=== PATIENT | female | born 1940 | race Caucasian/White ===

== ENCOUNTER → 2016-08-06 | Outpatient (CLI) | payer OTHER ==
[~2016-08-06] MED LIST: ALOE25CA4 PO; ATOR-54 PO; GABA-113 PO; HYDR25TA4 PO; IBUP-1105 PO
[2016-08-06 18:29] LABS: BLOOD UREA NITROGEN 19 mg/dl (7-18); BUN/CREATININE RATIO 23.1 (10-20); CALCIUM 9.3 mg/dl (8.5-10.1); CARBON DIOXIDE 27 mmol/L (21-32); CHLORIDE 98 mmol/L (98-107); CREATININE 0.83 mg/dl (0.60-1.20); GLUCOSE 82 mg/dl (70-99); POTASSIUM 3.7 mmol/L (3.5-5.1); SODIUM 134 mmol/L (136-145)
[2016-08-06 18:32] LABS: CHOLESTEROL 151 mg/dl (0-200); HDL CHOLESTEROL 77 mg/dl; LDL CHOLESTEROL CALCULATED 58 mg/dl; TRIGLYCERIDES 81 mg/dl (0-150); VERY LOW DENSITY LIPOPROT CALC 16 mg/dl
== END | disposition home or self-care (01) ==
LOC: C.LABPVFM 13:51
PROVIDERS: ATTEND Nurse Practitioner
DX: E55.9 Vitamin D deficiency, unspecified (principal); E78.5 Hyperlipidemia, unspecified; I10 Essential (primary) hypertension

== ENCOUNTER → 2017-02-10 | Outpatient (CLI) | payer OTHER ==
[2017-02-10 17:34] LABS: BLOOD UREA NITROGEN 15 mg/dl (7-18); BUN/CREATININE RATIO 18.2 (10-20); CALCIUM 9.7 mg/dl (8.5-10.1); CARBON DIOXIDE 30 mmol/L (21-32); CHLORIDE 100 mmol/L (98-107); CREATININE 0.85 mg/dl (0.60-1.20); GLUCOSE 89 mg/dl (70-99); POTASSIUM 3.8 mmol/L (3.5-5.1); SODIUM 135 mmol/L (136-145)
== END | disposition home or self-care (01) ==
LOC: C.LABPVFM 13:46
PROVIDERS: ATTEND Nurse Practitioner
DX: I10 Essential (primary) hypertension (principal)

== ENCOUNTER → 2017-07-15 | Outpatient (CLI) | payer OTHER ==
[~2017-07-15] MED LIST changes: +CALC500T85 PO; +CHOL1TAB42 PO; -GABA-113 PO; +NRN600 PO; +OXYC-57 PO
[2017-07-15 18:37] LABS: BLOOD UREA NITROGEN 18 mg/dl (7-18); CALCIUM 9.5 mg/dl (8.5-10.1); CARBON DIOXIDE 28 mmol/L (21-32); CREATININE 0.94 mg/dl (0.60-1.20); GLUCOSE 89 mg/dl (70-99); POTASSIUM 3.2 mmol/L (3.5-5.1); SODIUM 131 mmol/L (136-145)
== END | disposition home or self-care (01) ==
LOC: C.LABPVFM 16:06
PROVIDERS: ATTEND Nurse Practitioner
DX: I10 Essential (primary) hypertension (principal)

== ENCOUNTER → 2017-07-19 | Day surgery (SDC) | payer OTHER ==
[2017-06-28 10:18] VITALS: Ht 162.6 cm; Wt 55.5 kg
[~2017-07-19] VITALS: Ht 162.6 cm; Wt 55.5 kg
[~2017-07-19] MED LIST changes: +500ML BSS 0.3ML EPI 1:1000PF IRRIG ONE; +ACETAMINOPHEN 325 MG TAB PO PRN; +AMVISC PLUS 0.8ML SYRINGE INT OCU ONE; +ATROPINE SULFATE 0.1 MG/ML 5ML SYR IV PRN; +BSS FLUSH ONE; +EpHEDrine SULFATE INJ 50 MG/ML AMP IV PRN; +EpINEphrine INJ 1MG/ML AMP 1 MG/ML AMP ONE; +LACTATED RINGER'S 1000ML 500 ML IV SCH; +LIDOCAINE 3.5% OPH GEL PER APPLICATION CHARGE ONE; +LIDOCAINE HCL 1% MPF 2 ML VIAL ONE; +MIDAZOLAM HCL 1 MG/ML 2ML VIAL ONE; +OCUCOAT 1 ML SOLN IO ONE; +PHENYLEPHRINE HCL 10% OP SOLN PER DROP CHARGE OPL SCH; +POVIDONE-IODINE OP SOLN 30 ML BTL ONE; +PROPARACAINE 0.5% OP SOLN PER DROP CHARGE OPL SCH; +TOBRAMYCIN/DEXAMETHASONE OPH OINT PER APPLN CHARGE ONE
[2017-07-19] MEDS: PHENYLEPHRINE HCL 2.5% OP SOLN PER DROP CHARGE OPL SCH ×2 (08:12→08:17)
[2017-07-19] MEDS: TROPICAMIDE 1% OP SOLN PER DROP CHARGE OPL SCH ×2 (08:13→08:18)
[2017-07-19] MEDS: CYCLOPENTOLATE HCL 1% OP SOLN PER DROP CHARGE OPL SCH ×2 (08:14→08:19)
[2017-07-19] MEDS: KETOROLAC 0.5% OP SOLN PER DROP CHARGE OPL SCH ×2 (08:15→08:20)
[2017-07-19] MEDS: GATIFLOXACIN OP SOLN PER DROP CHARGE OPL SCH ×2 (08:16→08:26)
--- NOTE | 2017-07-19 08:55 | History & Physical Bridge - [place] ---
H&P Re-Evaluation Bridge Note: I have examined the patient, reviewed the History & Physical and in the interval since the performance of the History & Physical I have noted the following changes of clinical significance: No changes noted
--- NOTE | 2017-07-19 09:26 | [facility] Operative Report ---
Operative Report Date of Service Jul 19, 2017. Operative Report 1. PREOPERATIVE DIAGNOSIS: Cataract of the left eye. 2. POSTOPERATIVE DIAGNOSIS: Same. 3. PROCEDURE: Phacoemulsification with intraocular lens implantation of the left eye. SURGEON: Dr. Srinivas Kidd. ANESTHESIA: Topical Lidocaine gel, 1% Non- Preserved intracameral Lidocaine, and monitored intravenous sedation. INDICATIONS FOR THE PROCEDURE: The patient is a 76 - year-old female with a history of cataract of the left eye causing significant visual impairment. The details of the proposed procedure were explained to the patient who asked appropriate questions and following discussion of all risks, benefits and alternatives agreed to have the procedure done. 4. OPERATION AND FINDINGS: DESCRIPTION OF PROCEDURE: After informed consent was obtained, the patient was brought to the Operating Room at the [facility]. The patient was placed in a supine position and then the left eye was prepped and draped in the usual sterile fashion for intraocular surgery. A drop of topical Lidocaine gel was placed in the operative eye. A wire lid speculum was then placed in the fornices. A corneal paracentesis was then created temporally. The Non-Preserved Lidocaine was then instilled into the anterior chamber. The anterior chamber was then pressurized with viscoelastic. A 2.0 mm clear corneal incision was then created temporally. A cystotome was inserted into the anterior chamber and used to create a tear in the anterior lens capsule. This capsular tear was then used to create a small flap and the flap was dragged in a counterclockwise direction in order to create a continuous curvilinear capsulorrhexis. Hydrodissection was accomplished with balanced salt solution. Phacoemulsification of the lens nucleus was then performed in a standard [id number] technique. The phaco time was 36 seconds with an average power of 14 %. The remaining cortical material was removed using irrigation aspiration. The capsular bag was then filled with viscoelastic. A [employer] Lomb MI60L +22.0 diopters lens was then loaded into the injector and injected into the capsular bag. The remaining viscoelastic was removed with the irrigation aspiration handpiece. The wound was hydrated and then checked and found to be watertight. The intraocular pressure was checked and found to be adequate. The wire lid speculum was removed and the patient's face was cleaned and dried. TobraDex ointment was placed in the inferior fornix. The patient was discharged to the Recovery Room having tolerated the procedure well. There were no complications. The patient will be seen tomorrow in the office for follow-up. I attest to the content of the Intraoperative Record and any orders documented therein. Any exceptions are noted below.
--- NOTE | 2017-07-19 09:27 | Discharge Instructions-SurgCtr ---
Discharge Instructions Date of Service Jul 19, 2017. Visit Reason for Visit: Cataract Left Eye Discharge Discharge Diagnosis / Problem: cataract Discharge Goals Goal(s): Improve function Activity Recommendations Activity Limitations: per Instructions/Follow-up section Anesthesia . Post Anesthesia Instructions: If you have had General Anesthesia or IV Sedation: * Do not drive today. * Resume driving when surgeon permits. * Do not make important decisions or sign legal documents today. * Call surgeon for: 1. Temperature elevations greater than 101 degrees F. 2. Uncontrollable pain. 3. Excessive bleeding. 4. Persistent nausea and vomiting. 5. Medication intolerance (nausea, vomiting or rash). * For nausea and vomiting use only clear liquids such as: tea, soda, bouillon until nausea subsides, then gradually increase diet as tolerated. * If you have any concerns or questions, call your surgeon's office. If physician is unavailable and it is an emergency, call 911 or go to the nearest emergency room. . Diet Recommendations Home Diet: resume previous diet Procedures Procedures Performed: Left Cataract Phacoemulsification With Intraocular Lens Implant Pending Studies Studies pending at discharge: no Medical Emergencies . Who to Call and When: Medical Emergencies: If at any time you feel your situation is an emergency, please call 911 immediately. . Non-Emergent Contact Non-Emergency issues call your: [employer] . . "Provider Documentation" section prepared by Srinivas Kidd. .
[2017-07-19 09:30] VITALS: TEMP 36.3
--- NOTE | 2017-07-19 09:45 | Anesthesia Progress Nt - [facility] ---
Anesthesia Post Op Note Date & Time Jul 19, 2017 at 09:45 Vital Signs Pain Intensity: 0 Vital Signs Past 12 Hours Date Time Temp Pulse Resp B/P (MAP) Pulse Ox O2 Delivery O2 Flow Rate FiO2 07/19/17 09:30 36.3 78 16 134/76 (95) 99 Room Air 07/19/17 08:09 36.3 69 16 171/85 (113) 98 Room Air Notes Mental Status: alert / awake / arousable, participated in evaluation Pt Amnestic to Procedure: Yes Nausea / Vomiting: adequately controlled Pain: adequately controlled Airway Patency, RR, SpO2: stable & adequate BP & HR: stable & adequate Hydration State: stable & adequate Anesthetic Complications: no major complications apparent
[2017-07-19 09:51] VITALS: BP 151/73; PULSE 63; O2SAT 100
== END | disposition home or self-care (01) ==
LOC: X.SURG 07:54
PROVIDERS: ATTEND Ophthalmology
DX: H26.9 Unspecified cataract (principal); I10 Essential (primary) hypertension; M54.5 Low back pain; E78.00 Pure hypercholesterolemia, unspecified; F41.9 Anxiety disorder, unspecified; E78.5 Hyperlipidemia, unspecified; E55.9 Vitamin D deficiency, unspecified; F32.9 Major depressive disorder, single episode, unspecified; E05.00 Thyrotoxicosis with diffuse goiter without thyrotoxic crisis or storm; E03.9 Hypothyroidism, unspecified; Z87.891 Personal history of nicotine dependence; Z92.29 Personal history of other drug therapy

== ENCOUNTER → 2017-07-27 | Outpatient (CLI) | payer OTHER ==
[~2017-07-27] MED LIST changes: -500ML BSS 0.3ML EPI 1:1000PF IRRIG ONE; -ACETAMINOPHEN 325 MG TAB PO PRN; -AMVISC PLUS 0.8ML SYRINGE INT OCU ONE; -ATROPINE SULFATE 0.1 MG/ML 5ML SYR IV PRN; -BSS FLUSH ONE; -EpHEDrine SULFATE INJ 50 MG/ML AMP IV PRN; -EpINEphrine INJ 1MG/ML AMP 1 MG/ML AMP ONE; -LACTATED RINGER'S 1000ML 500 ML IV SCH; -LIDOCAINE 3.5% OPH GEL PER APPLICATION CHARGE ONE; -LIDOCAINE HCL 1% MPF 2 ML VIAL ONE; -MIDAZOLAM HCL 1 MG/ML 2ML VIAL ONE; -OCUCOAT 1 ML SOLN IO ONE; -PHENYLEPHRINE HCL 10% OP SOLN PER DROP CHARGE OPL SCH; -POVIDONE-IODINE OP SOLN 30 ML BTL ONE; -PROPARACAINE 0.5% OP SOLN PER DROP CHARGE OPL SCH; -TOBRAMYCIN/DEXAMETHASONE OPH OINT PER APPLN CHARGE ONE
== END | disposition home or self-care (01) ==
LOC: C.LABPVFM 07:29
PROVIDERS: ATTEND Nurse Practitioner
DX: E87.6 Hypokalemia (principal)

== ENCOUNTER → 2017-08-09 | Day surgery (SDC) | payer OTHER ==
[2017-07-27 16:18] VITALS: Ht 162.6 cm; Wt 55.5 kg
[~2017-08-09] VITALS: Ht 162.6 cm; Wt 55.5 kg
[~2017-08-09] MED LIST changes: +500ML BSS 0.3ML EPI 1:1000PF IRRIG ONE; +ACETAMINOPHEN 325 MG TAB PO PRN; +AMVISC PLUS 0.8ML SYRINGE INT OCU ONE; +ATROPINE SULFATE 0.1 MG/ML 5ML SYR IV PRN; +BSS FLUSH ONE; +EpHEDrine SULFATE INJ 50 MG/ML AMP IV PRN; +EpINEphrine INJ 1MG/ML AMP 1 MG/ML AMP ONE; +LACTATED RINGER'S 1000ML 500 ML IV SCH; +LIDOCAINE 3.5% OPH GEL PER APPLICATION CHARGE ONE; +LIDOCAINE HCL 1% MPF 2 ML VIAL ONE; +MIDAZOLAM HCL 1 MG/ML 2ML VIAL ONE; +PHENYLEPHRINE HCL 10% OP SOLN PER DROP CHARGE OPR SCH; +POVIDONE-IODINE OP SOLN 30 ML BTL ONE; +PROPARACAINE 0.5% OP SOLN PER DROP CHARGE OPR SCH; +TOBRAMYCIN/DEXAMETHASONE OPH OINT PER APPLN CHARGE ONE
[2017-08-09] MEDS: PHENYLEPHRINE HCL 2.5% OP SOLN PER DROP CHARGE OPR SCH ×2 (10:01→10:07)
[2017-08-09] MEDS: TROPICAMIDE 1% OP SOLN PER DROP CHARGE OPR SCH ×2 (10:02→10:08)
[2017-08-09] MEDS: CYCLOPENTOLATE HCL 1% OP SOLN PER DROP CHARGE OPR SCH ×2 (10:03→10:09)
[2017-08-09] MEDS: KETOROLAC 0.5% OP SOLN PER DROP CHARGE OPR SCH ×2 (10:04→10:10)
[2017-08-09] MEDS: GATIFLOXACIN OP SOLN PER DROP CHARGE OPR SCH ×2 (10:05→10:15)
--- NOTE | 2017-08-09 11:06 | [facility] Operative Report ---
Operative Report Date of Service Aug 09, 2017. Operative Report 1. PREOPERATIVE DIAGNOSIS: Cataract of the right eye. 2. POSTOPERATIVE DIAGNOSIS: Same. 3. PROCEDURE: Phacoemulsification with intraocular lens implantation of the right eye. SURGEON: Dr. Srinivas Kidd. ANESTHESIA: Topical Lidocaine gel, 1% Non- Preserved intracameral Lidocaine, and monitored intravenous sedation. INDICATIONS FOR THE PROCEDURE: The patient is a 76 - year-old female with a history of cataract of the right eye causing significant visual impairment. The details of the proposed procedure were explained to the patient who asked appropriate questions and following discussion of all risks, benefits and alternatives agreed to have the procedure done. 4. OPERATION AND FINDINGS: DESCRIPTION OF PROCEDURE: After informed consent was obtained, the patient was brought to the Operating Room at the [facility]. The patient was placed in a supine position and then the right eye was prepped and draped in the usual sterile fashion for intraocular surgery. A drop of topical Lidocaine gel was placed in the operative eye. A wire lid speculum was then placed in the fornices. A corneal paracentesis was then created temporally. The Non-Preserved Lidocaine was then instilled into the anterior chamber. The anterior chamber was then pressurized with viscoelastic. A 2.0 mm clear corneal incision was then created temporally. A cystotome was inserted into the anterior chamber and used to create a tear in the anterior lens capsule. This capsular tear was then used to create a small flap and the flap was dragged in a counterclockwise direction in order to create a continuous curvilinear capsulorrhexis. Hydrodissection was accomplished with balanced salt solution. Phacoemulsification of the lens nucleus was then performed in a standard [id number] technique. The phaco time was 32 seconds with an average power of 15 %. The remaining cortical material was removed using irrigation aspiration. The capsular bag was then filled with viscoelastic. A [employer]ch [employer] Lomb MI60L +22.0 diopters lens was then loaded into the injector and injected into the capsular bag. The remaining viscoelastic was removed with the irrigation aspiration handpiece. The wound was hydrated and then checked and found to be watertight. The intraocular pressure was checked and found to be adequate. The wire lid speculum was removed and the patient's face was cleaned and dried. TobraDex ointment was placed in the inferior fornix. The patient was discharged to the Recovery Room having tolerated the procedure well. There were no complications. The patient will be seen tomorrow in the office for follow-up. I attest to the content of the Intraoperative Record and any orders documented therein. Any exceptions are noted below.
--- NOTE | 2017-08-09 11:07 | Discharge Instructions-SurgCtr ---
Discharge Instructions Date of Service Aug 09, 2017. Visit Reason for Visit: Cataract Right Eye Discharge Discharge Diagnosis / Problem: cataract Discharge Goals Goal(s): Improve function Activity Recommendations Activity Limitations: per Instructions/Follow-up section Anesthesia . Post Anesthesia Instructions: If you have had General Anesthesia or IV Sedation: * Do not drive today. * Resume driving when surgeon permits. * Do not make important decisions or sign legal documents today. * Call surgeon for: 1. Temperature elevations greater than 101 degrees F. 2. Uncontrollable pain. 3. Excessive bleeding. 4. Persistent nausea and vomiting. 5. Medication intolerance (nausea, vomiting or rash). * For nausea and vomiting use only clear liquids such as: tea, soda, bouillon until nausea subsides, then gradually increase diet as tolerated. * If you have any concerns or questions, call your surgeon's office. If physician is unavailable and it is an emergency, call 911 or go to the nearest emergency room. . Diet Recommendations Home Diet: resume previous diet Procedures Procedures Performed: Right Cataract Phacoemulsification With Intraocular Lens Implant Pending Studies Studies pending at discharge: no Medical Emergencies . Who to Call and When: Medical Emergencies: If at any time you feel your situation is an emergency, please call 911 immediately. . Non-Emergent Contact Non-Emergency issues call your: [employer] . . "Provider Documentation" section prepared by Srinivas Kidd. .
[2017-08-09 11:10] VITALS: TEMP 36.7
--- NOTE | 2017-08-09 11:13 | Anesthesia Progress Nt - [facility] ---
Anesthesia Post Op Note Date & Time Aug 09, 2017 at 11:13 Vital Signs Pain Intensity: 0 Vital Signs Past 12 Hours Date Time Temp Pulse Resp B/P (MAP) Pulse Ox O2 Delivery O2 Flow Rate FiO2 08/09/17 09:54 36.5 78 20 152/79 (103) 97 Room Air Notes Mental Status: alert / awake / arousable, participated in evaluation Pt Amnestic to Procedure: Yes Nausea / Vomiting: adequately controlled Pain: adequately controlled Airway Patency, RR, SpO2: stable & adequate BP & HR: stable & adequate Hydration State: stable & adequate Anesthetic Complications: no major complications apparent
[2017-08-09 11:31] VITALS: BP 162/74; PULSE 71; O2SAT 100
== END | disposition home or self-care (01) ==
LOC: X.SURG 09:42
PROVIDERS: ATTEND Ophthalmology
DX: H26.9 Unspecified cataract (principal); I10 Essential (primary) hypertension; M50.30 Other cervical disc degeneration, unspecified cervical region; M51.36 Other intervertebral disc degeneration, lumbar region; E78.5 Hyperlipidemia, unspecified; E03.9 Hypothyroidism, unspecified; E55.9 Vitamin D deficiency, unspecified; F32.9 Major depressive disorder, single episode, unspecified; Z87.891 Personal history of nicotine dependence; Z88.5 Allergy status to narcotic agent

== ENCOUNTER → 2017-09-02 | Outpatient (CLI) | payer OTHER ==
[~2017-09-02] MED LIST changes: -500ML BSS 0.3ML EPI 1:1000PF IRRIG ONE; -ACETAMINOPHEN 325 MG TAB PO PRN; -AMVISC PLUS 0.8ML SYRINGE INT OCU ONE; -ATROPINE SULFATE 0.1 MG/ML 5ML SYR IV PRN; -BSS FLUSH ONE; -EpHEDrine SULFATE INJ 50 MG/ML AMP IV PRN; -EpINEphrine INJ 1MG/ML AMP 1 MG/ML AMP ONE; -LACTATED RINGER'S 1000ML 500 ML IV SCH; -LIDOCAINE 3.5% OPH GEL PER APPLICATION CHARGE ONE; -LIDOCAINE HCL 1% MPF 2 ML VIAL ONE; -MIDAZOLAM HCL 1 MG/ML 2ML VIAL ONE; -PHENYLEPHRINE HCL 10% OP SOLN PER DROP CHARGE OPR SCH; -POVIDONE-IODINE OP SOLN 30 ML BTL ONE; -PROPARACAINE 0.5% OP SOLN PER DROP CHARGE OPR SCH; -TOBRAMYCIN/DEXAMETHASONE OPH OINT PER APPLN CHARGE ONE
[2017-09-02 13:57] LABS: BLOOD UREA NITROGEN 23 mg/dl (7-18); CALCIUM 9.2 mg/dl (8.5-10.1); CARBON DIOXIDE 27 mmol/L (21-32); GLUCOSE 94 mg/dl (70-99); POTASSIUM 3.6 mmol/L (3.5-5.1); SODIUM 132 mmol/L (136-145)
[2017-09-02 14:00] LABS: CHOLESTEROL 127 mg/dl (0-200); LDL CHOLESTEROL CALCULATED 59 mg/dl
== END | disposition home or self-care (01) ==
LOC: C.LABPVFM 08:15
PROVIDERS: ATTEND Nurse Practitioner
DX: I10 Essential (primary) hypertension (principal); E87.6 Hypokalemia; E55.9 Vitamin D deficiency, unspecified; E78.5 Hyperlipidemia, unspecified

== ENCOUNTER → 2017-10-03 | Outpatient (CLI) | payer OTHER | END | disposition home or self-care (01) | LOC: C.MAMM 09:17 | PROVIDERS: ATTEND Nurse Practitioner | DX: Z00.00 Encounter for general adult medical examination without abnormal findings (principal); Z78.0 Asymptomatic menopausal state ==

== ENCOUNTER → 2017-10-17 | Outpatient (CLI) | payer OTHER ==
[2017-10-17 17:47] LABS: BLOOD UREA NITROGEN 16 mg/dl (7-18); CALCIUM 9.1 mg/dl (8.5-10.1); CARBON DIOXIDE 27 mmol/L (21-32); CREATININE 0.76 mg/dl (0.60-1.20); GLUCOSE 84 mg/dl (70-99); SODIUM 134 mmol/L (136-145)
== END | disposition home or self-care (01) ==
LOC: C.LABPVFM 14:57
PROVIDERS: ATTEND Nurse Practitioner
DX: I10 Essential (primary) hypertension (principal); E87.1 Hypo-osmolality and hyponatremia

== ENCOUNTER 2021-02-02 08:05 | Inpatient (IN) ==
[2021-02-02] MEDS ORDERED: SODIUM CHLORIDE 0.9% 500 ML IV STA (08:18)
[2021-02-02] MEDS ORDERED: SODIUM CHLORIDE 0.9% 1000ML 1,000 ML IV STA (08:18)
[2021-02-02] MEDS ORDERED: ACETAMINOPHEN 325 MG TAB PO STA (08:35)
[2021-02-02] MEDS ORDERED: CEFEPIME 2,000 MG/20 ML VIAL IV STA (08:36)
[2021-02-02] MEDS ORDERED: VANCOMYCIN CONSULT ACTIVE PRN (08:36)
[2021-02-02] MEDS ORDERED: VANCOMYCIN HCL 1,250 MG in SODIUM CHLORIDE 0.9% 500 ML IV ONE (08:36)
--- NOTE | 2021-02-02 08:39 | XRay Report ---
XR chest 1V portable CLINICAL HISTORY: Fever COMPARISON STUDY: Chest radiograph April 15, 2018. FINDINGS: Right internal jugular Nezmfo-q-Jbav is in place. There is no pneumothorax or pleural effus ion. Cardiac size is normal. There may be minimal right midlung opacity. There is mild interstitial t hickening. Minimal left basilar opacity favors atelectasis. IMPRESSION: 1. Possible minimal right midlung opacity. This could reflect an infectious process, artifact or a pu lmonary nodule. Radiographic follow-up is recommended to ensure resolution. 2. Mild left basilar opacity which favors atelectasis. 3. Mild interstitial thickening. This may reflect pulmonary vascular congestion. ACT 112: Negative or not required by law. Electronically signed by: Sterling Dallas M.D. 02/02/2021 8:38 AM
--- NOTE | 2021-02-02 08:58 | Emergency Department Note ---
History of Present Illness General Chief complaint: Fever Time Seen by Provider: 02/02/21 08:10 Source: patient, family (daughter) and RN notes reviewed Mode of arrival: ambulatory Limitations: no limitations History of Present Illness Provider complaint: Fever, leukemia This patient is an 80-year-old male who presents emergency department with complaints of fever, weakness. Patient has history of myelodysplastic disorder and acute myeloid leukemia. Daughter states she was transfused platelets 3 days ago. She has been having low-grade fevers intermittently since discharge from [facility] the third week of December. Patient's daughter notes today she has become progressively weaker, febrile and altered. Patient has multiple bruises and petechiae. She had a new port put in during her recent hospi talization. She is on oral chemotherapy. Daughter denies any coughing, vomiting or diarrhea. She does have some dried blood around the mouth and a hematoma on the upper lip. Patient and daughter deny any clear falls. Home Medications Medication Instructions Recorded Confirmed Type ascorbate calcium (vitamin C) 500 500 mg PO DAILY 01/11/19 02/02/21 History mg tablet cholecalciferol (vitamin D3) 25 1,000 units PO DAILY 01/11/19 02/02/21 History mcg (1,000 unit) capsule acyclovir 400 mg tablet 400 mg PO BID 03/31/19 02/02/21 History voriconazole 50 mg tablet 100 mg PO Q12H tab 03/06/20 02/02/21 History alendronate 70 mg tablet (Fosamax) 70 mg PO WEEKLY #12 tab 03/10/20 02/02/21 Rx rosuvastatin 5 mg tablet (Crestor) 5 mg PO DAILY #90 tab 05/16/20 02/02/21 Rx lisinopril 20 mg tablet 20 mg PO DAILY #30 tab 06/16/20 02/02/21 Rx amlodipine 5 mg tablet 5 mg PO DAILY #30 tab 08/21/20 02/02/21 Rx omeprazole 20 mg capsule,delayed 20 mg PO DAILY #30 cap 09/09/20 02/02/21 Rx release polyethylene glycol 3350 17 gram 17 g PO DAILY PRN #30 ea 09/12/20 02/02/21 Rx oral powder packet levofloxacin 500 mg tablet 500 mg PO DAILY 01/05/21 02/02/21 History oxycodone-acetaminophen 5 mg-325 See Rx Instructions PO .COMPLEX 01/15/21 02/02/21 Rx mg tablet PRN #30 tab gabapentin 600 mg tablet 600 mg PO TID #180 tab 01/22/21 02/02/21 Rx enasidenib 100 mg tablet (Idhifa) 100 mg PO DAILY 01/30/21 02/02/21 History allopurinol 300 mg tablet 300 mg PO DAILY 02/02/21 02/02/21 History Allergies Allergy/AdvReac Type Severity Reaction Status Date / Time morphine AdvReac Mild N/V Verified 02/02/21 08:18 Past Med/Surg History Medical History (Updated 02/03/21 @ 13:17 by Nicolette Perez MD) Acute myeloid leukemia Anxiety Chronic lumbar pain Degeneration of cervical intervertebral disc Disc degeneration, lumbar Elevated serum globulin level Elevated total protein Encounter for long-term (current) use of medications History of depression History of Graves' disease History of hypothyroidism Hyperlipidemia Hypertension Hypokalemia Hyponatremia Neuropathic pain Vitamin D insufficiency Surgical History History of carpal tunnel surgery Both wrists History of neck surgery Surgery on neck twice Family History Mother Colorectal cancer Other Family history non-contributory Denies family history of Ovarian cancer Prostate cancer Myocardial infarction Breast cancer Social History Smoking Status: Former smoker Second Hand Exposure: No; Hx Alcohol Use: No Hx Substance Use: No Preferred Language: Belgian Communication Ability: Effective 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 Beliefs That Will Affect Care: None marital status: Current Living Situation: Spouse current occupational status: retired Other Information That Helps Us Care for You: No Feels Safe at Home: Yes Safety Concerns: Feels Safe At This Time Dental Care, Regularly: No Seatbelt Use: always Assistive Devices: Denture - Upper, Glasses and Walker Review of Systems Unobtainable due to cognitive status (Patient is unable to answer questions appropriately, history obtained per daughter) Physical Exam Vital Signs Vital Signs - 24 hr 02/02/21 08:14 02/02/21 09:35 02/02/21 11:14 Temperature 38 C H 37.7 C H Temperature Source Oral Oral Pulse Rate 85 Pulse Rate [Right Finger] 80 91 H Respiratory Rate 20 18 18 Respiratory Effort / Characteristics Non-Labored Spontaneous Non-Labored Spontaneous Non-Labored Spontaneous Respiratory Depth Normal Normal Normal Blood Pressure 96/46 L Blood Pressure [Right Arm] 107/49 L 95/42 L Blood Pressure Mean 62 Blood Pressure Mean [Right Arm] 68 59 Blood Pressure Position Sitting Blood Pressure Position [Right Arm] Lying Lying Pulse Oximetry 92 97 98 Oxygen Delivery Method Room Air Nasal Cannula Nasal Cannula Oxygen Flow Rate 2 2 Sepsis Recent Fever Within 48 Hours No Sepsis New/Unexplained Change in Mental Status N/A Sepsis Action Taken by Nursing No Action Required Vital signs reviewed. Noted to be febrile. General: Chronically ill-appearing 80 yo female, in no significant distress. HEENT: No scleral icterus, PERRLA, neck supple. Small ecchymotic area to nasal bridge and upper lip. Cardiovascular: Regular rate and rhythm, no extra sounds. Pulmonary: Clear to auscultation bilaterally, normal work of breathing. Abdomen: Soft, nontender, nondistended, positive bowel sounds. Musculoskeletal: Atraumatic, no peripheral edema. Neurologic: Patient somnolent and groggy. unable to speak clearly, moves all extremities, restless Skin: Warm, dry, petechial rash, several ecchymotic areas to extremities Course Administered Medications Acyclovir (Acyclovir 400 Mg Tab) 400 mg PO BID [facility] Stop: 03/04/21 20:59 Last Admin: 02/02/21 20:22 Dose: Not Given Documented by: [id number] Enasidenib (Enasidenib Mesylate 100 Mg Tab) 100 mg PO DAILY [facility] Stop: 03/04/21 14:59 Last Admin: 02/02/21 16:59 Dose: 100 mg Documented by: [id number] Gabapentin (Gabapentin 600 Mg Tab) 600 mg PO TID [facility] Stop: 03/04/21 20:59 Last Admin: 02/02/21 20:21 Dose: Not Given Documented by: [id number] Cefepime HCl 2,000 mg/ Syringe 20 mls @ 5 mls/min IV Q12 [facility]; Protocol Stop: 02/04/21 20:59 Last Admin: 02/02/21 20:17 Dose: 5 mls/min Documented by: [id number] Oxycodone HCl (Oxycodone Hcl Ir 5 Mg Tab (Immediate Release)) 5 mg PO Q6H PRN PRN Reason: Pain Stop: 02/16/21 16:42 Last Admin: 02/02/21 17:01 Dose: 5 mg Documented by: [id number] Discontinued Medications Acetaminophen (Acetaminophen 325 Mg Tab) 650 mg PO NOW STA Stop: 02/02/21 08:36 Last Admin: 02/02/21 09:05 Dose: 650 mg Documented by: [id number] Dexamethasone (Dexamethasone Sod Inj 4 Mg/Ml Vial) 10 mg IV NOW STA Stop: 02/02/21 10:22 Last Admin: 02/02/21 11:09 Dose: 10 mg Documented by: [id number] Gabapentin (Gabapentin 600 Mg Tab) 600 mg PO NOW STA Stop: 02/02/21 17:27 Last Admin: 02/02/21 17:47 Dose: 600 mg Documented by: [id number] Hydroxyurea (Hydroxyurea 500 Mg Cap) 2,000 mg PO NOW STA Stop: 02/02/21 10:22 Last Admin: 02/02/21 11:09 Dose: 2,000 mg Documented by: [id number] Cosigned by: [id number] Sodium Chloride (Nss) 500 mls @ 999 mls/hr IV .Q31M STA Stop: 02/02/21 08:48 Last Infusion: 02/02/21 09:41 Dose: 0 mls/hr Documented by: [id number] Admin: 02/02/21 09:05 Dose: 999 mls/hr Documented by: [id number] Sodium Chloride (Nss 1000ml) 1,000 mls @ 125 mls/hr IV .Q8H STA Stop: 02/02/21 16:17 Last Infusion: 02/02/21 12:20 Dose: 0 mls/hr Documented by: [id number] Admin: 02/02/21 09:41 Dose: 125 mls/hr Documented by: [id number] Cefepime HCl (Maxipime) 2,000 mg in 20 mls @ 5 mls/min IV NOW STA; Protocol Stop: 02/02/21 08:39 Last Admin: 02/02/21 09:06 Dose: 5 mls/min Documented by: [id number] Vancomycin HCl 1,250 mg/ (Sodium Chloride) 525 mls @ 200 mls/hr IV NOW ONE Stop: 02/02/21 11:13 Last Infusion: 02/02/21 11:50 Dose: 0 mls/hr Documented by: [id number] Admin: 02/02/21 09:06 Dose: 200 mls/hr Documented by: [id number] Sodium Chloride (Nss 1000ml) 500 mls @ 999 mls/hr IV .Q31M ONE Stop: 02/02/21 10:50 Last Infusion: 02/02/21 11:49 Dose: 0 mls/hr Documented by: [id number] Admin: 02/02/21 10:54 Dose: 999 mls/hr Documented by: [id number] Morphine Sulfate (Morphine Sulfate 2 Mg/Ml Carp) Confirm Administered Dose 2 mg .ROUTE .STK-MED ONE Stop: 02/02/21 17:34 Last Admin: 02/02/21 17:37 Dose: 2 mg Documented by: [id number] Non-Formulary Medication (Voriconazole) 100 mg PO Q12H MARIA E Stop: 03/04/21 12:36 Last Admin: 02/02/21 15:53 Dose: Not Given Documented by: [id number] Critical Care Time Critical Care Time: Yes Total Critical Care Time: 45 I have personally spent 45 minutes of critical care time in the direct management of this patient. This was a life threatening event. This 45 minutes is in excess of all separately billable procedures. Medical Decision Making Differential Diagnosis Viral syndrome, malignancy, pneumonia, influenza, meningitis, urinary tract infection, sepsis, bacteremia, as well as other pathologies. Medical Records Attestation: I reviewed the patient's medical records. Home Medications Current Medication List: was personally reviewed by me Laboratory Data Attestation: I reviewed the patient's lab results. Result diagrams: 02/02/21 19:35 02/02/21 19:35 Lab Results 02/02/21 02/02/21 02/02/21 Range/Units 08:40 08:40 08:40 WBC 83.78 H* (4.8-10.8) K/uL RBC 1.29 L (4.2-5.4) M/uL Hgb 4.0 L* (12.0-16.0) g/dL Hct 11.6 L* (37-47) % MCV 89.9 (80-100) fL MCH 31.0 (25-34) pg MCHC 34.5 (32-36) g/dL RDW Std Deviation 65.9 H (36.4-46.3) fL RDW Coeff of Bulmaro 20.5 H (11.5-14.5) % Plt Count 14 L* (130-400) K/uL MPV 9.2 (7.4-10.4) fL Neutrophils % (Manual) 5.8 % Lymphocytes % (Manual) 15.7 % Monocytes % (Manual) 6.6 % Metamyelocytes % (Man) 18.2 % Myelocytes % (Man) 16.5 % Blast Cells % (Manual) 37.2 % Neutrophils # (Manual) 4.86 (1.4-6.5) K/uL Total Absolute Neuts 4.86 (1.4-6.5) K/uL Lymphocytes # (Manual) 13.15 H (1.2-3.4) K/uL Total Abs Lymphocytes 13.15 H (1.2-3.4) K/uL Monocytes # (Manual) 5.53 H (0.11-0.59) K/uL Metamyelocytes # (Man) 15.25 H (0-0) K/uL Myelocytes # (Manual) 13.82 H (0-0) K/uL Blast Cells # (Man) 31.17 H (0-0) K/uL Platelet Estimate SIGNIFIC DECREASED (Normal) RBC Morphology Unremarkable Sodium 135 L (136-145) mmol/L Potassium 4.6 (3.5-5.1) mmol/L Chloride 102 (98-107) mmol/L Carbon Dioxide 23 (21-32) mmol/L Anion Gap 10.0 (3-11) BUN 30 H (7-18) mg/dl Creatinine 1.40 H (0.6-1.2) mg/dl Est Cr Clr Drug Dosing 29.5 ml/min Est GFR ( Amer) 40.7 ml/min Est GFR (Non-Af Amer) 35.1 ml/min BUN/Creatinine Ratio 21.6 H (10-20) Glucose 110 H (70-99) mg/dl Lactate (0.4-2.0) mmol/L Uric Acid (2.6-7.2) mg/dl Calcium 8.1 L (8.5-10.1) mg/dl Total Bilirubin 0.8 (0.2-1) mg/dl AST 36 (15-37) U/L ALT 11 L (12-78) U/L Alkaline Phosphatase 41 L (45-117) U/L Total Protein 5.9 L (6.4-8.2) gm/dl Albumin 3.0 L (3.4-5.0) gm/dl Globulin 2.9 (2.5-4.0) gm/dl Albumin/Globulin Ratio 1.0 (0.9-2) Procalcitonin 1.16 H (0-0.5) ng/ml COVID-19 Eval Order SARS-CoV-2 (PCR) (Negative) Influ A Molecular Assay (Negative) Influ B Molecular Assay (Negative) 02/02/21 02/02/21 02/02/21 Range/Units 08:40 08:40 08:40 WBC (4.8-10.8) K/uL RBC (4.2-5.4) M/uL Hgb (12.0-16.0) g/dL Hct (37-47) % MCV (80-100) fL MCH (25-34) pg MCHC (32-36) g/dL RDW Std Deviation (36.4-46.3) fL RDW Coeff of Bulmaro (11.5-14.5) % Plt Count (130-400) K/uL MPV (7.4-10.4) fL Neutrophils % (Manual) % Lymphocytes % (Manual) % Monocytes % (Manual) % Metamyelocytes % (Man) % Myelocytes % (Man) % Blast Cells % (Manual) % Neutrophils # (Manual) (1.4-6.5) K/uL Total Absolute Neuts (1.4-6.5) K/uL Lymphocytes # (Manual) (1.2-3.4) K/uL Total Abs Lymphocytes (1.2-3.4) K/uL Monocytes # (Manual) (0.11-0.59) K/uL Metamyelocytes # (Man) (0-0) K/uL Myelocytes # (Manual) (0-0) K/uL Blast Cells # (Man) (0-0) K/uL Platelet Estimate (Normal) RBC Morphology Sodium (136-145) mmol/L Potassium (3.5-5.1) mmol/L Chloride (98-107) mmol/L Carbon Dioxide (21-32) mmol/L Anion Gap (3-11) BUN (7-18) mg/dl Creatinine (0.6-1.2) mg/dl Est Cr Clr Drug Dosing ml/min Est GFR ( Amer) ml/min Est GFR (Non-Af Amer) ml/min BUN/Creatinine Ratio (10-20) Glucose (70-99) mg/dl Lactate 1.0 (0.4-2.0) mmol/L Uric Acid (2.6-7.2) mg/dl Calcium (8.5-10.1) mg/dl Total Bilirubin (0.2-1) mg/dl AST (15-37) U/L ALT (12-78) U/L Alkaline Phosphatase (45-117) U/L Total Protein (6.4-8.2) gm/dl Albumin (3.4-5.0) gm/dl Globulin (2.5-4.0) gm/dl Albumin/Globulin Ratio (0.9-2) Procalcitonin (0-0.5) ng/ml COVID-19 Eval Order Covid19 at [facility] SARS-CoV-2 (PCR) (Negative) Influ A Molecular Assay Negative (Negative) Influ B Molecular Assay Negative (Negative) 02/02/21 02/02/21 Range/Units 08:40 08:40 WBC (4.8-10.8) K/uL RBC (4.2-5.4) M/uL Hgb (12.0-16.0) g/dL Hct (37-47) % MCV (80-100) fL MCH (25-34) pg MCHC (32-36) g/dL RDW Std Deviation (36.4-46.3) fL RDW Coeff of Bulmaro (11.5-14.5) % Plt Count (130-400) K/uL MPV (7.4-10.4) fL Neutrophils % (Manual) % Lymphocytes % (Manual) % Monocytes % (Manual) % Metamyelocytes % (Man) % Myelocytes % (Man) % Blast Cells % (Manual) % Neutrophils # (Manual) (1.4-6.5) K/uL Total Absolute Neuts (1.4-6.5) K/uL Lymphocytes # (Manual) (1.2-3.4) K/uL Total Abs Lymphocytes (1.2-3.4) K/uL Monocytes # (Manual) (0.11-0.59) K/uL Metamyelocytes # (Man) (0-0) K/uL Myelocytes # (Manual) (0-0) K/uL Blast Cells # (Man) (0-0) K/uL Platelet Estimate (Normal) RBC Morphology Sodium (136-145) mmol/L Potassium (3.5-5.1) mmol/L Chloride (98-107) mmol/L Carbon Dioxide (21-32) mmol/L Anion Gap (3-11) BUN (7-18) mg/dl Creatinine (0.6-1.2) mg/dl Est Cr Clr Drug Dosing ml/min Est GFR ( Amer) ml/min Est GFR (Non-Af Amer) ml/min BUN/Creatinine Ratio (10-20) Glucose (70-99) mg/dl Lactate (0.4-2.0) mmol/L Uric Acid 7.2 (2.6-7.2) mg/dl Calcium (8.5-10.1) mg/dl Total Bilirubin (0.2-1) mg/dl AST (15-37) U/L ALT (12-78) U/L Alkaline Phosphatase (45-117) U/L Total Protein (6.4-8.2) gm/dl Albumin (3.4-5.0) gm/dl Globulin (2.5-4.0) gm/dl Albumin/Globulin Ratio (0.9-2) Procalcitonin (0-0.5) ng/ml COVID-19 Eval Order SARS-CoV-2 (PCR) NEGATIVE (Negative) Influ A Molecular Assay (Negative) Influ B Molecular Assay (Negative) Imaging Data Radiologist's Impression: Head CT 02/02/21 08:37 CT SCAN OF THE BRAIN WITHOUT IV CONTRAST CLINICAL HISTORY: Fever. Thrombocytopenia. Leukemia. Dizziness. COMPARISON STUDY: No priors. TECHNIQUE: Unenhanced axial CT scan of the brain is performed from the vertex to the skull base. A dose lowering technique was utilized adhering to the principles of ALARA. CT DOSE: 537.48 mGy.cm FINDINGS: Brain parenchyma: There are age-related involutional changes noting mild subc ortical and periventricular microangiopathic change. There is no hemorrhage, mass effect, or evidence of acute territorial ischemia by CT criteria. Alcocer- white matter differentiation is preserved. No extra-axial fluid collection is seen. Ventricles, sulci, cisterns: Prominent secondary to involutional change. Intracranial vasculature: There is atherosclerotic calcification of the cavernous carotid and vertebral arteries. Calvarium: Unremarkable. Sinuses and mastoids: The visualized paranasal sinuses are clear. The mastoid air cells are well pneumatized. Orbits: The bony orbits are grossly intact. IMPRESSION: There is no hemorrhage, mass effect, or evidence of acute territorial ischemia by CT criteria. ACT 112: Negative or not required by law. Electronically signed by: Oliver Abdalla M.D. 02/02/2021 9:44 AM Blood Pressure Blood Pressure Findings: Low blood pressure Blood Pressure Disposition: further management by hospitalist MDM Narrative This patient was evaluated and appeared to be in no significant distress. Patient was somnolent but restless. IV access was obtained and laboratory work was drawn. An order for cardiac monitoring was placed and the patient was noted to be in a normal sinus rhythm at 91 bpm. Patient was hydrated with normal saline solution. Head CT was performed and reveals no evidence of acute intracranial abnormality. Blood cultures and lactate were drawn. Patient was medicated with IV vancomycin and IV cefepime. Laboratory work reveals a marked leukocytosis at 83.78. Hemoglobin is 4 and platelets are 15,000. Patient was recently transfused platelets 3 days ago. Case was discussed with [facility] oncology, was contacted in [place] and did accept the patient i n transfer. She recommended 2 g of oral hydroxyurea, 10 mg of IV dexamethasone, supplemental oxygen as needed and to maintain her oral chemotherapy if possible. They will attempt to get her bed at their facility soon as possible. She was typed and crossed for PRBCs, 2 units to be transfused. Her daughter was consented for the transfusion. She also agreed to the transfer. Dr. Perry of the hospitalist service at our facility was consulted for admission until a bed becomes available. Due to high acuity and volume in our department was felt not to be in the patient's best interest to await bed assignment at the tertiary care facility in our emergency department. Patient's daughter expressed understanding of the plan and agreed. Impression & Plan Tumor lysis syndrome following antineoplastic drug therapy, Acute myeloid leuk emia, Fever, Anemia, Thrombocytopenia, Acute alteration in mental status Discharge Plan Visit Data Chief Complaint: Fever ED Provider: Chris,Nicolette B Discharge Problem: Tumor lysis syndrome following antineoplastic drug therapy, Acute myeloid leukemia, Fever, Anemia, Thrombocytopenia, Acute alteration in mental status Patient Disposition: Admitted As Inpatient Discharge Instructions Interventions: ED Discharge Assessment Last Done: 02/02/21 13:14
[2021-02-02 09:16] LABS: Influenza A virus by PCR Negative (Negative); Influenza B virus by PCR Negative (Negative)
[2021-02-02 09:31] LABS: BUN Creatinine Ratio 21.6 (10-20); Calcium 8.1 mg/dl (8.5-10.1); Creatinine Clr Calc Pharmacy 29.5 ml/min; Est GFR (African American) 40.7 ml/min; Est GFR (Non-African American) 35.1 ml/min; Potassium 4.6 mmol/L (3.5-5.1)
[2021-02-02 09:34] LABS: Bilirubin,Total 0.8 mg/dl (0.2-1); Globulin 2.9 gm/dl (2.5-4.0); Total Protein 5.9 gm/dl (6.4-8.2)
--- NOTE | 2021-02-02 09:45 | CT Scan Report ---
CT SCAN OF THE BRAIN WITHOUT IV CONTRAST CLINICAL HISTORY: Fever. Thrombocytopenia. Leukemia. Dizziness. COMPARISON STUDY: No priors. TECHNIQUE: Unenhanced axial CT scan of the brain is performed from the vertex to the skull base. A do se lowering technique was utilized adhering to the principles of ALARA. CT DOSE: 537.48 mGy.cm FINDINGS: Brain parenchyma: There are age-related involutional changes noting mild subcortical and periventric ular microangiopathic change. There is no hemorrhage, mass effect, or evidence of acute territorial i schemia by CT criteria. Alcocer-white matter differentiation is preserved. No extra-axial fluid collecti on is seen. Ventricles, sulci, cisterns: Prominent secondary to involutional change. Intracranial vasculature: There is atherosclerotic calcification of the cavernous carotid and vertebr al arteries. Calvarium: Unremarkable. Sinuses and mastoids: The visualized paranasal sinuses are clear. The mastoid air cells are well pneu matized. Orbits: The bony orbits are grossly intact. IMPRESSION: There is no hemorrhage, mass effect, or evidence of acute territorial ischemia by CT chasidy owens. ACT 112: Negative or not required by law. Electronically signed by: Oliver Abdalla M.D. 02/02/2021 9:44 AM
[2021-02-02 09:46] LABS: Hematocrit (blood only) 11.6 % (37-47); Mean Corpuscular Hgb Conc 34.5 g/dL (32-36); Mean Corpuscular Volume 89.9 fL (80-100); Mean Platelet Volume 9.2 fL (7.4-10.4); Platelet Count 14 K/uL (130-400); RDW Coefficient of Variation 20.5 % (11.5-14.5); RDW Standard Deviation 65.9 fL (36.4-46.3); Red Blood Count 1.29 M/uL (4.2-5.4); White Blood Count 83.78 K/uL (4.8-10.8)
[2021-02-02] MEDS ORDERED: SODIUM CHLORIDE 0.9% 1000ML 500 ML IV ONE (10:20)
[2021-02-02] MEDS ORDERED: DEXAMETHASONE SOD INJ 4 MG/ML VIAL IV STA (10:21)
[2021-02-02] MEDS ORDERED: HYDROXYUREA 500 MG CAP PO STA (10:21)
[2021-02-02 10:32] LABS: Platelet Estimate SIGNIFIC DECREASED (Normal); RBC Morphology Unremarkable
[2021-02-02 10:33] LABS: ALC (manual) 13.15 K/uL (1.2-3.4); ANC (manual) 4.86 K/uL (1.4-6.5); Blast # (manual) 31.17 K/uL (0-0); Blast Cells % (manual) 37.2 %; Lymphocytes # (manual) 13.15 K/uL (1.2-3.4); Lymphocytes % (manual) 15.7 %; Metamyelocytes # (manual) 15.25 K/uL (0-0); Metamyelocytes % (manual) 18.2 %; Monocytes # (manual) 5.53 K/uL (0.11-0.59); Monocytes % (manual) 6.6 %; Myelocytes # (manual) 13.82 K/uL (0-0); Myelocytes % (manual) 16.5 %; Neutrophils # (manual) 4.86 K/uL (1.4-6.5); Neutrophils % (manual) 5.8 %
[2021-02-02] MEDS ORDERED: SODIUM CHLORIDE 0.9% 250 ML IV PRN (11:12)
[2021-02-02] MEDS ORDERED: ACETAMINOPHEN 325 MG TAB PO PRN (11:17)
--- NOTE | 2021-02-02 11:37 | History & Physical Report ---
Date of Service February 02, 2021 Assessment & Plan (1) MDS (myelodysplastic syndrome): (2) Acute myeloid leukemia: (3) Anemia: Plan: Mrs. 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 Garza) She was admitted on 01/13 - 01/18 for fevers and nausea. The infectious workup was negative and it was determined that she had fevers related to her malignancy. She was given prednisone for a week and tylenol. She was discharged on Idhifa and hydrea. Her WBC has been increasing due to progressive AML since she was discharged and was admitted for cytarabine between 01/22 and 01/27. She had recently been started on idhifa and was on hydrea. Hydrea was held and she was given 3 days of cytarabine 01/22-01/24/2021. She had improvement in her WBC from 94.8-2.8. Fevers resolved. She was to continue prednisone daily for now, and tapered per Dr. Garza at next visit. A mediport was placed prior to discharge. 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 She was started on Decitabine 03/2018. 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 - Azacitadine and Venetoclax started 01/18/2020. - 12/2020 Disease progression and treatment switched to Idhifa and hydrea - Noted to have rapidly rising WBC with high blast percentage. Received cytarabine 12/2020 On discharge, on January 27 - recommendations were to continue acyclovir, Levaquin, voriconazole for prophylaxis. Prednisone 20 mg, IDH IFA 100 mg daily. Patient was to obtain labs twice a week, and follow-up in office in 1 week. Fever procalcitonin also elevated Blood cultures obtained UA ordered Patient received vancomycin and cefepime in the ED Continue with cefepime until transfer to [place] WBC at 83,000 Hgb at 4 Plt 14. ED provider notified about possible blast crisis by pathologist. ED provider contacted [place] oncology, and discussed patient's clinical status with oncologist, Dr. Benson at [facility]. ED provider was instructed to give Decadron, Hydrea, and to continue patient's chemotherapy - idhfa. 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 Transfused packed red blood cells now. Continue monitor CBC Obtain LDH, uric acid, Phos Monitor tumor lysis labs Peripheral smear pending Continue to closely monitor hemodynamic status Code: DNR/DNI - discussed with the patient History of Present Illness Chief Complaint: Fever, weakness (pt on chemotherapy) Primary Care Provider: PATTY Lopez Mrs. 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 Garza) She was admitted on 01/13 - 01/18 for fevers and nausea. The infectious workup was negative and it was determined that she had fevers related to her malignancy. She was given prednisone for a week and tylenol. She was discharged on Idhifa and hydrea. Her WBC has been increasing since she was discharged and was admitted for cytarabine. Admitted with leukocytosis due to progressive AML between 01/22 and 01/27. She had recently been started on idhifa and was on hydrea. Hydrea was held and she was given 3 days of cytarabine 01/22-01/24/2021. She had improvement in her WBC from 94.8-2.8. Fevers resolved. She was to continue prednisone daily for now, and tapered per Dr. Garza at next visit. A mediport was placed prior to discharge. 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 She was started on Decitabine 03/2018. 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 - 12/2020 Disease progression and treatment switched to Idhifa and hydrea - Noted to have rapidly rising WBC with high blast percentage. On discharge, on January 27 - recommendations were to continue acyclovir, Levaquin, voriconazole for prophylaxis. Prednisone 20 mg, IDH IFA 100 mg daily. Patient was to obtain labs twice a week, and follow-up in office in 1 week. Patient now presents, on February 02, at [facility] due to fever and weakness. Says that her legs give out and she was brought in by ambulance. Currently she is lying in bed, in no acute distress, however she feels very weak. She is awake and able to answer questions appropriately. Denies any history of cough, denies any chest pain, abdominal pain, nausea vomiting. Says that she had a bowel movement yesterday. No dysuria symptoms. White blood cell count significant, at 83,000, hemoglobin 4 platelets 14. ED provider notified about possible blast crisis by pathologist. ED provider contacted [place] [facility], and discussed patient's clinical status with oncologist, Dr. Benson at [facility]. ED provider was instructed to give Decadron, Hydrea, and to continue patient's chemotherapy - idhfa. 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 ED provider contacted the hospitalist service for admission, to closely monitor and manage the patient prior to transfer as it is not clear when the bed will be available. In the ED patient received vancomycin and cefepime. Blood cultures were obtained. She will be transfused packed red blood cells. Allergies Allergy/AdvReac Type Severity Reaction Status Date / Time morphine AdvReac Mild N/V Verified 02/02/21 08:18 Home Medications Medication Instructions Recorded Confirmed Type ascorbate calcium (vitamin C) 500 500 mg PO DAILY 01/11/19 02/02/21 History mg tablet cholecalciferol (vitamin D3) 25 1,000 units PO DAILY 01/11/19 02/02/21 History mcg (1,000 unit) capsule acyclovir 400 mg tablet 400 mg PO BID 03/31/19 02/02/21 History voriconazole 50 mg tablet 100 mg PO Q12H tab 03/06/20 02/02/21 History alendronate 70 mg tablet (Fosamax) 70 mg PO WEEKLY #12 tab 03/10/20 02/02/21 Rx rosuvastatin 5 mg tablet (Crestor) 5 mg PO DAILY #90 tab 05/16/20 02/02/21 Rx lisinopril 20 mg tablet 20 mg PO DAILY #30 tab 06/16/20 02/02/21 Rx amlodipine 5 mg tablet 5 mg PO DAILY #30 tab 08/21/20 02/02/21 Rx omeprazole 20 mg capsule,delayed 20 mg PO DAILY #30 cap 09/09/20 02/02/21 Rx release polyethylene glycol 3350 17 gram 17 g PO DAILY PRN #30 ea 09/12/20 02/02/21 Rx oral powder packet levofloxacin 500 mg tablet 500 mg PO DAILY 01/05/21 02/02/21 History oxycodone-acetaminophen 5 mg-325 See Rx Instructions PO .COMPLEX 01/15/21 02/02/21 Rx mg tablet PRN #30 tab gabapentin 600 mg tablet 600 mg PO TID #180 tab 01/22/21 02/02/21 Rx enasidenib 100 mg tablet (Idhifa) 100 mg PO DAILY 01/30/21 02/02/21 History allopurinol 300 mg tablet 300 mg PO DAILY 02/02/21 02/02/21 History Past Med/Surg History Medical History (Updated 02/02/21 @ 11:41 by Jesse Perry MD) Acute myeloid leukemia Anxiety Chronic lumbar pain Degeneration of cervical intervertebral disc Disc degeneration, lumbar Elevated serum globulin level Elevated total protein Encounter for long-term (current) use of medications History of depression History of Graves' disease History of hypothyroidism Hyperlipidemia Hypertension Hypokalemia Hyponatremia Neuropathic pain Vitamin D insufficiency Surgical History History of carpal tunnel surgery Both wrists History of neck surgery Surgery on neck twice Family History Mother Colorectal cancer Other Family history non-contributory Denies family history of Ovarian cancer Prostate cancer Myocardial infarction Breast cancer Social History Smoking Status: Former smoker Second Hand Exposure: No; Hx Alcohol Use: No Hx Substance Use: No Preferred Language: Polish Communication Ability: Effective Roll Carrier Required: No Beliefs That Will Affect Care: None marital status: Current Living Situation: Spouse current occupational status: retired Other Information That Helps Us Care for You: No Feels Safe at Home: Yes Safety Concerns: Feels Safe At This Time Dental Care, Regularly: No Seatbelt Use: always Assistive Devices: Denture - Upper, Glasses and Walker Review of Systems Review of Systems: All systems reviewed & are unremarkable except as noted in Subjective Physical Exam Constitutional: WD/WN, vitals as above + ill appearing Eyes: PERRL, conjunctivae normal, anicteric sclerae ENMT: external ear and nose normal, oropharynx normal Neck: normal visual inspection Respiratory: normal respiratory effort, lungs clear to auscultation Cardiovascular: RRR, no murmur, no edema Chest (Breasts): Chest: normal inspection of chest (R chest mediport - significant ecchymosis noted) Musculoskeletal: no cyanosis or clubbing, extremities motor strength 5/5 Skin: + ecchymosis (multiple, otherwise skin warm and dry) Neurologic: PERRL, EOMI, accommodation nl, no face palsy, no dysarthria Psychiatric: A+Ox3, euthymic affect Genitourinary: no CVA tenderness Lymphatic: no lymphedema Results & Data Results & Data ([facility]) Vital Signs (Past 12 Hours) Vital Signs Temp Pulse Pulse Resp BP BP Pulse Ox 02/02/21 11:14 91 H 18 95/42 L 98 02/02/21 09:35 37.7 C H 80 18 107/49 L 97 02/02/21 08:14 38 C H 85 20 96/46 L 92 Laboratory Results 02/02/21 02/02/21 02/02/21 Range/Units 11:25 11:25 08:40 WBC (4.8-10.8) K/uL RBC (4.2-5.4) M/uL Hgb (12.0-16.0) g/dL Hct (37-47) % MCV (80-100) fL MCH (25-34) pg MCHC (32-36) g/dL RDW Std Deviation (36.4-46.3) fL RDW Coeff of Bulmaro (11.5-14.5) % Plt Count (130-400) K/uL MPV (7.4-10.4) fL Neutrophils % (Manual) % Lymphocytes % (Manual) % Monocytes % (Manual) % Metamyelocytes % (Man) % Myelocytes % (Man) % Blast Cells % (Manual) % Neutrophils # (Manual) (1.4-6.5) K/uL Total Absolute Neuts (1.4-6.5) K/uL Lymphocytes # (Manual) (1.2-3.4) K/uL Total Abs Lymphocytes (1.2-3.4) K/uL Monocytes # (Manual) (0.11-0.59) K/uL Metamyelocytes # (Man) (0-0) K/uL Myelocytes # (Manual) (0-0) K/uL Blast Cells # (Man) (0-0) K/uL Blood Smear Review Platelet Estimate (Normal) RBC Morphology Sodium (136-145) mmol/L Potassium (3.5-5.1) mmol/L Chloride (98-107) mmol/L Carbon Dioxide (21-32) mmol/L Anion Gap (3-11) BUN (7-18) mg/dl Creatinine (0.6-1.2) mg/dl Est Cr Clr Drug Dosing ml/min Est GFR ( Amer) ml/min Est GFR (Non-Af Amer) ml/min BUN/Creatinine Ratio (10-20) Glucose (70-99) mg/dl Lactate (0.4-2.0) mmol/L Calcium (8.5-10.1) mg/dl Phosphorus Pending Total Bilirubin (0.2-1) mg/dl AST (15-37) U/L ALT (12-78) U/L Alkaline Phosphatase (45-117) U/L Total Protein (6.4-8.2) gm/dl Albumin (3.4-5.0) gm/dl Globulin (2.5-4.0) gm/dl Albumin/Globulin Ratio (0.9-2) Procalcitonin (0-0.5) ng/ml COVID-19 Eval Order SARS-CoV-2 (PCR) NEGATIVE (Negative) Influ A Molecular Assay (Negative) Influ B Molecular Assay (Negative) Blood Type Pending Antibody Screen Pending Crossmatch See Detail 02/02/21 02/02/21 02/02/21 Range/Units 08:40 08:40 08:40 WBC (4.8-10.8) K/uL RBC (4.2-5.4) M/uL Hgb (12.0-16.0) g/dL Hct (37-47) % MCV (80-100) fL MCH (25-34) pg MCHC (32-36) g/dL RDW Std Deviation (36.4-46.3) fL RDW Coeff of Bulmaro (11.5-14.5) % Plt Count (130-400) K/uL MPV (7.4-10.4) fL Neutrophils % (Manual) % Lymphocytes % (Manual) % Monocytes % (Manual) % Metamyelocytes % (Man) % Myelocytes % (Man) % Blast Cells % (Manual) % Neutrophils # (Manual) (1.4-6.5) K/uL Total Absolute Neuts (1.4-6.5) K/uL Lymphocytes # (Manual) (1.2-3.4) K/uL Total Abs Lymphocytes (1.2-3.4) K/uL Monocytes # (Manual) (0.11-0.59) K/uL Metamyelocytes # (Man) (0-0) K/uL Myelocytes # (Manual) (0-0) K/uL Blast Cells # (Man) (0-0) K/uL Blood Smear Review Platelet Estimate (Normal) RBC Morphology Sodium (136-145) mmol/L Potassium (3.5-5.1) mmol/L Chloride (98-107) mmol/L Carbon Dioxide (21-32) mmol/L Anion Gap (3-11) BUN (7-18) mg/dl Creatinine (0.6-1.2) mg/dl Est Cr Clr Drug Dosing ml/min Est GFR ( Amer) ml/min Est GFR (Non-Af Amer) ml/min BUN/Creatinine Ratio (10-20) Glucose (70-99) mg/dl Lactate 1.0 (0.4-2.0) mmol/L Calcium (8.5-10.1) mg/dl Phosphorus Total Bilirubin (0.2-1) mg/dl AST (15-37) U/L ALT (12-78) U/L Alkaline Phosphatase (45-117) U/L Total Protein (6.4-8.2) gm/dl Albumin (3.4-5.0) gm/dl Globulin (2.5-4.0) gm/dl Albumin/Globulin Ratio (0.9-2) Procalcitonin (0-0.5) ng/ml COVID-19 Eval Order Covid19 at [facility] SARS-CoV-2 (PCR) (Negative) Influ A Molecular Assay Negative (Negative) Influ B Molecular Assay Negative (Negative) Blood Type Antibody Screen Crossmatch 02/02/21 02/02/21 02/02/21 Range/Units 08:40 08:40 08:40 WBC 83.78 H* (4.8-10.8) K/uL RBC 1.29 L (4.2-5.4) M/uL Hgb 4.0 L* (12.0-16.0) g/dL Hct 11.6 L* (37-47) % MCV 89.9 (80-100) fL MCH 31.0 (25-34) pg MCHC 34.5 (32-36) g/dL RDW Std Deviation 65.9 H (36.4-46.3) fL RDW Coeff of Bulmaro 20.5 H (11.5-14.5) % Plt Count 14 L* (130-400) K/uL MPV 9.2 (7.4-10.4) fL Neutrophils % (Manual) 5.8 % Lymphocytes % (Manual) 15.7 % Monocytes % (Manual) 6.6 % Metamyelocytes % (Man) 18.2 % Myelocytes % (Man) 16.5 % Blast Cells % (Manual) 37.2 % Neutrophils # (Manual) 4.86 (1.4-6.5) K/uL Total Absolute Neuts 4.86 (1.4-6.5) K/uL Lymphocytes # (Manual) 13.15 H (1.2-3.4) K/uL Total Abs Lymphocytes 13.15 H (1.2-3.4) K/uL Monocytes # (Manual) 5.53 H (0.11-0.59) K/uL Metamyelocytes # (Man) 15.25 H (0-0) K/uL Myelocytes # (Manual) 13.82 H (0-0) K/uL Blast Cells # (Man) 31.17 H (0-0) K/uL Blood Smear Review Pending Platelet Estimate SIGNIFIC DECREASED (Normal) RBC Morphology Unremarkable Sodium 135 L (136-145) mmol/L Potassium 4.6 (3.5-5.1) mmol/L Chloride 102 (98-107) mmol/L Carbon Dioxide 23 (21-32) mmol/L Anion Gap 10.0 (3-11) BUN 30 H (7-18) mg/dl Creatinine 1.40 H (0.6-1.2) mg/dl Est Cr Clr Drug Dosing 29.5 ml/min Est GFR ( Amer) 40.7 ml/min Est GFR (Non-Af Amer) 35.1 ml/min BUN/Creatinine Ratio 21.6 H (10-20) Glucose 110 H (70-99) mg/dl Lactate (0.4-2.0) mmol/L Calcium 8.1 L (8.5-10.1) mg/dl Phosphorus Total Bilirubin 0.8 (0.2-1) mg/dl AST 36 (15-37) U/L ALT 11 L (12-78) U/L Alkaline Phosphatase 41 L (45-117) U/L Total Protein 5.9 L (6.4-8.2) gm/dl Albumin 3.0 L (3.4-5.0) gm/dl Globulin 2.9 (2.5-4.0) gm/dl Albumin/Globulin Ratio 1.0 (0.9-2) Procalcitonin 1.16 H (0-0.5) ng/ml COVID-19 Eval Order SARS-CoV-2 (PCR) (Negative) Influ A Molecular Assay (Negative) Influ B Molecular Assay (Negative) Blood Type Antibody Screen Crossmatch Code Status & VTE Plan VTE Prophylaxis Plan VTE Prophylaxis will be ordered: Yes (1) Anemia Anemia type: unspecified type Qualified Code(s): D64.9 - Anemia, unspecified
[2021-02-02] MEDS ORDERED: VORICONAZOLE 50 MG PO SCH (12:37)
[2021-02-02] MEDS ORDERED: ENASIDENIB MESYLATE PO SCH (15:00)
--- NOTE | 2021-02-02 16:36 | Pharmacy Report ---
Pharmacy Vanc AUC Short Note - Date of Service February 02, 2021 - Assessment & Plan Assessment 80 year old F ordered Vancomycin for treatment of neutropenia empirically. Patient with elevated WBC due to AML and tumor lysis, fevers. She was recently on Chemotherapy and prophylactic Levaquin, Acyclovir and Voriconazole. Patient is now admitted d/t abnormal blood counts, weakness. Blood cultures pending. She is ordered both Vancomycin and Cefepime. Plan Vancomycin * AUC/GENNA is the preferred PK/PD target for vancomycin * AUC guided dosing is effective and associated with decreased risk of nephrotoxicity compared to traditional trough targets * Patient was ordered a loading dose of Vancomycin 1250 mg IV x1 in the ED today AM. * Ordered Vanco 1000 mg IV q24h maintenance dose to start tomorrow AM. Dosing interval may need to adjusted soon. * Estimated t1/2 = 27 hrs. * Plan on getting a trough level before 3rd dose on 02/04 if patient continues to stay here. Pharmacy will continue to follow and will adjust dose/frequency as necessary. Thank you.
[2021-02-02] MEDS ORDERED: oxyCODONE HCL IR 5 MG TAB (IMMEDIATE RELEASE) PO PRN (16:43)
[2021-02-02 17:08] LABS: Appearance Urine Clear (Clear); Bacteria Urine Automated Negative (Negative); Bilirubin Urine Negative (Negative); Blood Urine 3+ (Negative); Cast Urine Automated 0 /lpf (0-5); Color Urine Yellow; Epithelial Cell Urine Auto >30 /lpf (0-5); Glucose Urine UA Negative (Negative); Ketones Urine Negative (Negative); Leukocyte Esterase Urine Negative (Negative); Nitrite Urine Negative (Negative); Protein Urine Trace (Negative); RBC Urine Automated >30 /hpf (0-4); Specific Gravity Urine 1.012 (1.000-1.030); Urobilinogen Urine Negative (Negative)
[2021-02-02] MEDS ORDERED: GABAPENTIN 600 MG TAB PO STA (17:26)
[2021-02-02] MEDS ORDERED: MoRPHine SULFATE 2 MG/ML CARP IV PRN (17:28)
[2021-02-02] MEDS ORDERED: MoRPHine SULFATE 2 MG/ML CARP ONE (17:33)
[2021-02-02] MEDS ORDERED: VORICONAZOLE 200 MG TABLET PO SCH (20:00)
[2021-02-02] MEDS: ACYCLOVIR 400 MG TAB PO SCH ×2 (20:12→20:22)
[2021-02-02] MEDS: GABAPENTIN 600 MG TAB PO SCH ×2 (20:12→20:21)
[2021-02-02 20:18] LABS: Hematocrit (blood only) 28.3 % (37-47); Hemoglobin 9.8 g/dL (12.0-16.0); Mean Corpuscular Hemoglobin 29.5 pg (25-34); Mean Corpuscular Volume 85.2 fL (80-100); RDW Coefficient of Variation 19.2 % (11.5-14.5); RDW Standard Deviation 57.3 fL (36.4-46.3); Red Blood Count 3.32 M/uL (4.2-5.4); White Blood Count 60.05 K/uL (4.8-10.8)
[2021-02-02 20:26] LABS: BUN Creatinine Ratio 25.4 (10-20); Creatinine Clr Calc Pharmacy 37.2 ml/min; Est GFR (African American) 53.9 ml/min; Est GFR (Non-African American) 46.5 ml/min; Potassium 4.8 mmol/L (3.5-5.1)
[2021-02-02 20:36] LABS: Mean Corpuscular Hgb Conc 34.6 g/dL (32-36); Platelet Count 7 K/uL (130-400)
[2021-02-02 20:37] LABS: Platelet Estimate SIGNIFIC DECREASED (Normal)
[2021-02-02] MEDS ORDERED: CEFEPIME 2,000 MG in SYRINGE 0 ML IV SCH (21:00)
[2021-02-02 22:00] LABS: Base Excess ABG -4.9 mEq/L (-9-1.8); HCO3 ABG 20 mmol/L (19-24); Oxygen Saturation ABG 96.8 % (90-95); PCO2 ABG 37 mmHg (35-46); PO2 ABG 88 mmHg (80-95); pH ABG 7.36 (7.35-7.45)
[2021-02-02 22:03] LABS: Allen Test Pos (Pos)
[2021-02-02] MEDS ORDERED: FUROSEMIDE 20 MG in SYRINGE 0 ML IV ONE (23:08)
[2021-02-02] MEDS ORDERED: FUROSEMIDE 40 MG/4 ML VIAL IV ONE (23:15)
--- NOTE | 2021-02-03 06:25 | Hospitalist Progress Note ---
Date of Service February 03, 2021 Assessment & Plan Admission and Anticipated Discharge Date Admission Date: February 02, 2021 Subjective Was notified patient was drowsy and not waking up. Vitals stable. Saw and examined patient. Unresponsive to verbal and touch stimuli. Right pupil was dilated and sluggish to react to light. Ordered abg and stat ct head. Labs showed platelets 7. Ct head results came as acute intraparenchymal hematoma in basal ganglia measuring about 5.7 cm and left to right shift of 6mm. Dilated ventricles. Notified daughter and she was ok calling [facility] and also notified her that [facility] may not accept in transfer and may advice for comfort care. Daughter understood that but asked me to call [facility] anyway. discussed with [facility] Attending job specification writer And oncologist . Because of very poor prognosis was advised against transferring the patient and recommended supportive care. Called daughter and notified [facility] recommendations. Daughter was in agreement to keep patient comfortable. Patient was already DNR/DNI. Patient at 1:38am Feb 03 2021. Called and informed daughter. Results & Data Results & Data ([facility]) Vital Signs (Past 12 Hours) Vital Signs Temp Pulse Pulse Resp BP BP Pulse Ox 02/02/21 23:39 36.3 C L 78 18 148/64 H 99 02/02/21 22:39 36.5 C 99 H 18 148/67 H 96 02/02/21 22:09 36.8 C 96 H 16 148/67 H 96 02/02/21 21:54 36.3 C L 83 16 150/69 H 02/02/21 21:34 36.7 C 83 166/73 H 97 02/02/21 21:33 36.4 C L 83 166/73 H 98 02/02/21 20:00 36.4 C L 85 16 127/67 98 02/02/21 18:38 97 H 12 122/67 100
--- NOTE | 2021-02-03 06:26 | Death Pronouncement Note ---
Date of Service February 03, 2021 Pronouncement Note Admission Date Admission Date: February 02, 2021 Date and Time of Date of : 02/03/21 Time of : 01:38 Contributing Factors (1) MDS (myelodysplastic syndrome): (2) Acute myeloid leukemia: (3) Anemia: Additional Data Confirmation of : no pulse, no respirations, no heart sounds and pupils fixed and dilated Family: contacted Attending physician: Jesse Perry MD
--- NOTE | 2021-02-03 06:45 | CT Scan Report ---
CT head/brain wo con CLINICAL HISTORY: 80 years-old Female with AMS. Acutely altered mental status TECHNIQUE: Multiple axial CT images of the head were obtained without contrast. A dose lowering tech nique was utilized adhering to the principles of ALARA. CT DOSE: 1074.96 mGy.cm COMPARISON: Head CT of same day at 9:29 AM FINDINGS: Large acute intraparenchymal imaged, centered within the right basal ganglia measures up to approxima tely 5.4 x 5.4 cm. Moderate associated vasogenic edema. Motion degraded exam. There is intraventricul ar extension into the right greater than left lateral ventricles, third and fourth ventricle. Subarac hnoid hemorrhage is also noted within the right sylvian fissure and also within the central fissures at the apex bilaterally, right greater than left. Leftward midline shift of approximately 6 mm. Moder ate dilation of the ventricles. No acute territorial infarct identified. The calvarium is intact. The paranasal sinuses, mastoid air cells, and middle ear cavities are clear . IMPRESSION: 1. Large intraparenchymal hematoma centered within the right basal ganglia with intraventricular exte nsion. Moderate associated vasogenic edema results in associated mass effect with 6 mm leftward midli ne shift and moderate hydrocephalus. 2. Small amount of subarachnoid hemorrhage is most pronounced within the right sylvian fissure. ACT 112: Negative or not required by law. The above report was generated using voice recognition software. It may contain grammatical, syntax o r spelling errors. Electronically signed by: Reed Doss M.D. 02/03/2021 6:43 AM
--- NOTE | 2021-02-03 07:24 | Discharge Summary ---
Date of Service February 03, 2021 Admission HPI Per Admitting Provider Mrs. 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 Garza) She was admitted on 01/13 - 01/18 for fevers and nausea. The infectious workup was negative and it was determined that she had fevers related to her malignancy. She was given prednisone for a week and tylenol. She was discharged on Idhifa and hydrea. Her WBC has been increasing since she was discharged and was admitted for cytarabine. Admitted with leukocytosis due to progressive AML between 01/22 and 01/27. She had recently been started on idhifa and was on hydrea. Hydrea was held and she was given 3 days of cytarabine 01/22-01/24/2021. She had improvement in her WBC from 94.8-2.8. Fevers resolved. She was to continue prednisone daily for now, and tapered per Dr. Garza at next visit. A mediport was placed prior to discharge. 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 She was started on Decitabine 03/2018. 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 - 12/2020 Disease progression and treatment switched to Idhifa and hydrea - Noted to have rapidly rising WBC with high blast percentage. On discharge, on January 27 - recommendations were to continue acyclovir, Levaquin, voriconazole for prophylaxis. Prednisone 20 mg, IDH IFA 100 mg daily. Patient was to obtain labs twice a week, and follow-up in office in 1 week. Patient now presents, on February 02, at [facility] due to fever and weakness. Says that her legs give out and she was brought in by ambulance. Currently she is lying in bed, in no acute distress, however she feels very weak. She is awake and able to answer questions appropriately. Denies any history of cough, denies any chest pain, abdominal pain, nausea vomiting. Says that she had a bowel movement yesterday. No dysuria symptoms. White blood cell count significant, at 83,000, hemoglobin 4 platelets 14. ED provider notified about possible blast crisis by pathologist. ED provider contacted [facility], and discussed patient's clinical status with oncologist, Dr. Benson at [facility]. ED provider was instructed to give Decadron, Hydrea, and to continue patient's chemotherapy - idhfa. 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 ED provider contacted the hospitalist service for admission, to closely monitor and manage the patient prior to transfer as it is not clear when the bed will be available. In the ED patient received vancomycin and cefepime. Blood cultures were obtained. She will be transfused packed red blood cells. Admission Exam Per Admitting Provider Constitutional: WD/WN, vitals as above + ill appearing Eyes: PERRL, conjunctivae normal, anicteric sclerae ENMT: external ear and nose normal, oropharynx normal Neck: normal visual inspection Respiratory: normal respiratory effort, lungs clear to auscultation Cardiovascular: RRR, no murmur, no edema Chest (Breasts): Chest: normal inspection of chest (R chest mediport - significant ecchymosis noted) Musculoskeletal: no cyanosis or clubbing, extremities motor strength 5/5 Skin: + ecchymosis (multiple, otherwise skin warm and dry) Neurologic: PERRL, EOMI, accommodation nl, no face palsy, no dysarthria Psychiatric: A+Ox3, euthymic affect Genitourinary: no CVA tenderness Lymphatic: no lymphedema 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 Spencer's exam: Confirmation of : no pulse, no respirations, no heart sounds and pupils fixed and dilated Discharge Data Allergies Allergy/AdvReac Type Severity Reaction Status Date / Time morphine AdvReac Mild N/V Verified 02/02/21 08:18 Consultations 02/02/21 11:37 ED Decision to Admit Stat Ordered Studies 02/02/21 08:37 CT head/brain wo con Stat 02/02/21 21:40 CT head/brain wo con Urgent Hospital Course (1) MDS (myelodysplastic syndrome): (2) Acute myeloid leukemia: (3) Anemia: Mrs. 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 Garza) She was admitted on 01/13 - 01/18 for fevers and nausea. The infectious workup was negative and it was determined that she had fevers related to her malignancy. She was given prednisone for a week and tylenol. She was discharged on Idhifa and hydrea. Her WBC has been increasing due to progressive AML since she was discharged and was admitted for cytarabine between 01/22 and 01/27. She had recently been started on idhifa and was on hydrea. Hydrea was held and she was given 3 days of cytarabine 01/22-01/24/2021. She had improvement in her WBC from 94.8-2.8. Fevers resolved. She was to continue prednisone daily for now, and tapered per Dr. Garza at next visit. A mediport was placed prior to discharge. 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 She was started on Decitabine 03/2018. 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 - Azacitadine and Venetoclax started 01/18/2020. - 12/2020 Disease progression and treatment switched to Idhifa and hydrea - Noted to have rapidly rising WBC with high blast percentage. Received cytarabine 12/2020 On discharge, on January 27 - recommendations were to continue acyclovir, Levaquin, voriconazole for prophylaxis. Prednisone 20 mg, IDH IFA 100 mg daily. Patient was to obtain labs twice a week, and follow-up in office in 1 week. Fever procalcitonin also elevated Blood cultures obtained UA ordered Patient received vancomycin and cefepime in the ED Continue with cefepime until transfer to [facility] WBC at 83,000 Hgb at 4 Plt 14. ED provider notified about possible blast crisis by pathologist. ED provider contacted [facility], and discussed patient's clinical status with oncologist, Dr. Benson at [facility]. ED provider was instructed to give Decadron, Hydrea, and to continue patient's chemotherapy - idhfa. 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 Transfused packed red blood cells now. Continue monitor CBC Obtain LDH, uric acid, Phos Monitor tumor lysis labs Peripheral smear pending Continue to closely monitor hemodynamic status Code: DNR/DNI - discussed with the patient Update: 4 units of pRBCs ordered by ED provider given pt's significant anemia. Discussed with the nursing staff to recheck blood work - cbc and bmp after 2nd unit of pRBCs. Blood work ordered. Overnight however pt became unresponsive - please refer to the makeup sales consultant's note for further detail. Work up revealed intracranial hemorrhage. Pt's family was contacted as well as [facility]. Pt succumbed to her illness on February 03, 1:38 AM. Total Time Total Time Spent Total Time Spent (In Minutes): 0 Discharge Plan Discharge Items Patient Disposition: Discharge Diagnosis: MDS -> AML, TMS Addtl Attending Provider Instructions: Pt with known MDS -> AML who presents w/ possible blast crisis vs. tumor lysis syndrome. ED provider contacted Oncology at [facility] and pt is to be transferred there for further care. Overnight patient however became unresponsive, stat CT head showed intracranial hemorrhage. Patient passed at 1:38 AM on February 03.
[2021-02-03] MEDS ORDERED: VANCOMYCIN HCL 1,000 MG in SODIUM CHLORIDE 0.9% 250 ML IV SCH (08:00)
[2021-02-03] MEDS ORDERED: allopurinoL 300 MG TAB PO SCH (09:00)
--- NOTE | 2021-02-13 13:59 | Coding Query ---
CODING QUERY To promote full compliance with coding requirements relating to patient care, provider participation is requested in all cases of remote inpatient coder uncertainty. Please assist us with the question(s) below: Coding Question(s): There is documentation in the record and on Discharge Summary of, "ED provider notified about possible blast crisis by pathologist. ED provider contacted [facility], and discussed patient's clinical status with oncologist, Dr. Benson at [facility]. ED provider was instructed to give Decadron, Hydrea, and to continue patient's chemotherapy - idhfa. 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 ED provider contacted the hospitalist service for admission, to closely monitor and manage the patient prior to transfer as it is not clear when the bed will be available. In the ED patient received vancomycin and cefepime. Blood cultures were obtained. She will be transfused packed red blood cells", and the Hospital Course on Discharge Summary documents, "ED provider notified about possible blast crisis by pathologist. ED provider contacted [facility], and discussed patient's clinical status with oncologist, Dr. Benson at [facility]. ED provider was instructed to give Decadron, Hydrea, and to continue patient's chemotherapy - idhfa. 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 Transfused packed red blood cells now. Continue monitor CBC Obtain LDH, uric acid, Phos Monitor tumor lysis labs Peripheral smear pending", and down further on Discharge Summary, under Addnl Attending Provider Instructions, there is documentation of, " Pt with known MDS -> AML who presents w/ possible blast crisis vs. tumor lysis syndrome. ED provider contacted Oncology at [facility] and pt is to be transferred there for further care.". Please specify below, in your clinical opinion, regarding the diagnosis that was most treated during the admission. ( ) Acute Myeloid Leukemia with possible Blast Crisis ( ) Likely Tumor Lysis Syndrome ( x ) Both Tumor Lysis Syndrome and Acute Myeloid Leukemia with possible Blast Crisis were equally treated ( ) Other: Please Specify Physician's Response(s): Thank you Iraida Aden Principal Diagnosis: "that condition established after study, to be chiefly responsible for occasioning the admission of the patient to the hospital for care." Co-Existing Principal Diagnosis: "when two or more diagnoses equally meet the criteria for principal diagnosis as determined by the circumstances of admission, diagnostic work up, and/or therapy provided, and the Alphabetic Index, Tabular List, or another coding guideline does not provide sequencing direction, any one of the diagnoses may be sequenced first." "When the physician has documented what appears to be a current diagnosis in the body of the record, but has not included the diagnosis in the final diagnostic statement, the physician should be asked whether the diagnosis should be added." (Source Coding [facility] 2 QTR90. p3-4) ANGUS
== END 2021-02-03 02:45 | disposition expired | DRG 834 ==
LOC: ED 08:05 → 2S 11:17